=== PATIENT | female | born 1975 | race Caucasian/White ===

== ENCOUNTER 2017-04-18 06:54 | Day surgery (SDC) | payer OTHER ==
[2017-04-16 10:10] LABS: BASOPHILS # (AUTO) 0.2 K/uL (0.00-0.22); BASOPHILS % (AUTO) 1.9 % (0.0-2.0); EOSINOPHILS # (AUTO) 0.3 K/uL (0-0.4); EOSINOPHILS % (AUTO) 2.9 % (0.0-4.0); HEMATOCRIT 36.5 % (36-48); HEMOGLOBIN 11.2 g/dL (12.0-16.0); LYMPHOCYTES # (AUTO) 3.1 K/uL (2.5-16.5); LYMPHOCYTES % (AUTO) 29.3 % (20.5-51.1); MEAN CORPUSCULAR HEMOGLOBIN 22 pg (27-31); MEAN CORPUSCULAR HGB CONC 31 g/dL (33-37); MEAN CORPUSCULAR VOLUME 72 fL (80-94); MONOCYTES # (AUTO) 0.6 K/uL (0.8-1.0); MONOCYTES % (AUTO) 5.3 % (1.7-9.3); NEUTROPHILS # (AUTO) 6.3 K/uL (1.8-7.7); NEUTROPHILS % (AUTO) 60.6 % (42.2-75.2); PLATELET COUNT (AUTO) 357 K/uL (140-450); RED BLOOD CELL COUNT(AUTO) 5.03 MIL/uL (4.20-5.40); RED CELL DISTRIBUTION WIDTH 15.3 % (11.6-13.7); WHITE BLOOD COUNT (AUTO) 10.5 K/uL (4.8-10.8)
[2017-04-16 10:19] LABS: APPEARANCE,URINE HAZY (CLEAR); BILIRUBIN,URINE NEGATIVE (NEGATIVE); BLOOD, URINE 2+ (NEGATIVE); COLOR,URINE YELLOW (YELLOW); PROTEIN,URINE 3+ (NEGATIVE); UGLUCOSE NEGATIVE (NEGATIVE)
[2017-04-16 10:20] LABS: LEUKOCYTE ESTERASE ,URINE NEGATIVE (NEGATIVE); NITRITE, URINE NEGATIVE (NEGATIVE); UROBILINOGEN,URINE 0.2 EU/dL (0.2 - 1)
[2017-04-16 10:22] LABS: BACTERIA,URINE FEW /HPF (None Seen); MUCUS,URINE 2+ /LPF (None Seen); WBC,URINE 0-4 /HPF (0-5)
[2017-04-16 10:26] LABS: INR 0.9 (0.8-1.2); PARTIAL THROMBOPLASTIN TIME 23.6 secs (22-35.6); PROTHROMBIN TIME 9.4 secs (10.8-13.4)
[2017-04-16 10:30] LABS: ALBUMIN 2.2 g/dL (3.4-5.0); ANION GAP 9.3 (8-16); CALCIUM 8.2 mg/dL (8.5-10.1); CARBON DIOXIDE 26.5 mmol/L (21-32); CREATININE 0.6 mg/dL (0.6-1.3); PHOSPHORUS 3.9 mg/dL (2.5-4.9); POTASSIUM 3.8 mmol/L (3.5-5.1); TOTAL BILIRUBIN 0.3 mg/dL (0.0-1.0); TOTAL PROTEIN, SERUM 5.9 g/dL (6.4-8.2)
[~2017-04-18] VITALS: Ht 165.1 cm; Wt 78.5 kg
[2017-04-18] MEDS ORDERED: SEVOFLURANE 250 ML BTL INH ONE (11:58)
[2017-04-18] MEDS ORDERED: DEXAMETHASONE 4 MG/ML VIAL IVP ONE (11:58)
[2017-04-18] MEDS ORDERED: KETOROLAC 30 MG/ML VIAL IVP ONE (11:58)
[2017-04-18] MEDS ORDERED: ONDANSETRON 4 MG/2 ML VIAL IVP ONE (11:58)
[2017-04-18] MEDS ORDERED: PROPOFOL 200 MG/20 ML VIAL IV ONE (11:58)
[2017-04-18] MEDS ORDERED: ASPI81EC97 PO (12:03)
[2017-04-18] MEDS ORDERED: HIGH BLOOD PRESSURE (12:03)
[2017-04-18] MEDS ORDERED: fentaNYL 0.05 MG/ML VIAL ONE (12:10)
[2017-04-18] MEDS ORDERED: LACTATED RINGERS 1,000 ML IV SCH (12:42)
[2017-04-18] MEDS ORDERED: IBUPROFEN 600 MG TAB PO PRN (12:45)
[2017-04-18] MEDS ORDERED: HYDROmorphone PFS 2 MG/ML SYR ONE (12:58)
[2017-04-18] MEDS ORDERED: HYDROmorphone 1 MG/ML AMP IVP PRN (13:05)
== END 2017-04-18 13:57 | disposition home or self-care (01) ==
LOC: MDS 06:54 → MMU 06:55 → MDS 13:57
PROVIDERS: ATTEND Obstetrics & Gynecology
DX: D25.9 Leiomyoma of uterus, unspecified (principal); G47.30 Sleep apnea, unspecified; I50.9 Heart failure, unspecified; I10 Essential (primary) hypertension; D64.9 Anemia, unspecified
CPT/HCPCS: 36415; 58120; 71010; 80053; 81001; 82040; 82435; 82565; 82947; 84100; 84132; 84295; 84520; 84702; 85025; 85610; 85730; 86886; 86900; 86901; 93005; J1100; J1170; J1885; J2405; J2704; J3010; J7120

== ENCOUNTER 2020-03-31 07:28 | Day surgery (SDC) | payer OTHER, SELFPAY ==
[~2020-03-31] VITALS: Ht 165.1 cm; Wt 74.8 kg
[~2020-03-31 07:28] MED LIST: ASPI81EC97 PO; HIGH BLOOD PRESSURE
[2020-03-31] MEDS ORDERED: MIDAZOLAM 2 MG/2 ML VIAL ONE ×2 (09:25)
[2020-03-31] MEDS ORDERED: fentaNYL citrate 0.05 MG/ML VIAL ONE (09:26)
[2020-03-31] MEDS ORDERED: MIDAZOLAM 2 MG/2 ML VIAL IVP ONE (09:40)
== END 2020-03-31 10:35 | disposition home or self-care (01) ==
LOC: MDS 07:28 → MFCC 07:29 → MDS 10:35
PROVIDERS: ATTEND Internal Medicine Gastroenterology
DX: R10.13 Epigastric pain (principal); K31.89 Other diseases of stomach and duodenum; Z11.59 Encounter for screening for other viral diseases
CPT/HCPCS: 36415; 43239; 86677; J2250; U0003; J3010